=== PATIENT | male | born 1990 | race Caucasian/White ===

== ENCOUNTER 2021-07-01 05:50 | Emergency (ER) | payer MEDICAID | END 2021-07-01 07:00 | disposition home or self-care (01) | LOC: VM.ED 05:50 | DX: K04.7 Periapical abscess without sinus (principal); Z88.8 Allergy status to other drugs, medicaments and biological substances; Z79.84 Long term (current) use of oral hypoglycemic drugs; Z79.899 Other long term (current) drug therapy | CPT/HCPCS: 99282; 99283 ==